=== PATIENT | female | born 1950 | race Caucasian/White ===

== ENCOUNTER 2019-07-28 07:56 | Inpatient (IN) ==
--- NOTE | 2019-06-24 14:59 | Anesthesiology Consultation ---
Date of Service June 24, 2019 Assessment & Plan (1) Encounter for pre-operative examination: Chart Review Chart Review: Pending: Refer to Additional Notes / Consult section (pending preop testing (labs, CXR)) and Patient seen in Pre Admission Testing Teaching & Discussion Pre-Anesthesia Teaching/Discussion Notes: Instructed NPO after midnight before surgery,except medications with 15 cc of water. Medication instructions provided according to the PAT guidelines. History Surgery Operation Date: 07/28/19 10:05 Proposed Procedures p Total Knee Arthroplasty - Jose Vilchis MD Height/Weight Height: 5 ft 5 in Weight: 64 kg Allergies Allergy/AdvReac Type Severity Reaction Status Date / Time No Known Allergies Allergy Verified 06/22/19 09:48 Medications Home Medications Medication Instructions Recorded Confirmed Last Taken aspirin [Aspirin Low Dose] 81 mg PO QAM 06/22/19 06/22/19 Unknown coQ10 (ubiquinol) 200 mg PO QAM 06/22/19 06/22/19 Unknown meloxicam 15 mg PO QAM 06/22/19 06/22/19 Unknown omega-3 fatty acids-fish oil [Fish 1 cap PO QAM 06/22/19 06/22/19 Unknown Oil Extra Strength] plant stanol paolo [Cholest Off] 450 mg PO QAM 06/22/19 06/22/19 Unknown red yeast rice 1,200 mg PO QAM 06/22/19 06/22/19 Unknown sumatriptan succinate 50 mg PO DAILY PRN 06/24/19 06/24/19 Unknown Past Medical History Medical History Hx of migraines Osteoarthritis Exercise / Class Metabolic Activity II 4-5 Yardwork/Stairs/Walk up hill Past Family History Family History Mother Family history of diabetes mellitus Mother Family hx of colon cancer Past Surgical History Surgical History Hx of colonoscopy Past Anesthesia History No Hx of Anesthesia Complications and No Family Hx of Anesthesia Complications History of PONV No Hx of PONV and No Hx of Motion Sickness Social History Smoking Status: Never smoker Do You Dip or Chew Tobacco: No Hx Alcohol Use: No Hx Substance Use: No Review of Systems Patient denies chest pain, shortness of breath, dyspnea on exertion, reflux, cough, wheezing, palpitations. Physical Exam Vital Signs VITALS BP 128/78 P 88 TEMP 98.2 SP02 97%RA RESP 18 PHYSICAL Full neck and c-spine range of motion. Full TMJ range of motion. TMD 3.5 finger breaths Mallampati Score 2 Dentition: intact Lungs: clear throughout to auscultation Cardiac: regular rate and rhythm, no murmurs noted Spine: normal Carotid arteries: negative bruit Extremities: no edema Testing Electrocardiogram Date: 06/23/19 Findings: + NSR @ (71)
--- NOTE | 2019-06-24 15:09 | PAT Medication Instructions ---
Medication Instructions Date of Service June 24, 2019 Home Medications Sumatriptan 100 mg PO DAILY PRN aspirin [Aspirin Low Dose] 81 mg PO QAM coQ10 (ubiquinol) 200 mg PO QAM meloxicam 15 mg PO QAM omega-3 fatty acids-fish oil [Fish Oil Extra Strength] 1 cap PO QAM plant stanol paolo [Cholest Off] 450 mg PO QAM red yeast rice 1,200 mg PO QAM ASK your surgeon for instructions meloxicam 15 mg PO QAM STOP taking 2 weeks before surgery (or as soon as possible if surgery is within 2 weeks) coQ10 (ubiquinol) 200 mg PO QAM omega-3 fatty acids-fish oil [Fish Oil Extra Strength] 1 cap PO QAM plant stanol paolo [Cholest Off] 450 mg PO QAM red yeast rice 1,200 mg PO QAM Take morning of surgery With a small sip of water, OTHERWISE NOTHING TO EAT OR DRINK AFTER MIDNIGHT: Sumatriptan 100 mg PO DAILY PRN (if needed) aspirin [Aspirin Low Dose] 81 mg PO QAM Other Notes If you have any questions please call us at [phone] or [phone] or [phone] or [phone]
--- NOTE | 2019-06-24 15:32 | XRay Report ---
XR chest Pre-admission PA/Lat CLINICAL HISTORY: Preoperative chest COMPARISON STUDY: No previous studies for comparison. FINDINGS: The cardiac and mediastinal contours are normal. There is no evidence of focal pulmonary co nsolidation. There is no evidence of failure. No pleural effusions are visualized.[There is a linear focus of scar/atelectatic change in the right medial lung base. IMPRESSION: No active disease in the chest. Electronically signed by: Raphael Carrillo M.D. 06/24/2019 3:30 PM
[2019-06-24 16:38] LABS: Basophils # (auto) 0.08 K/uL (0-0.2); Basophils % (auto) 1.7 %; Eosinophils # (auto) 0.29 K/uL (0-0.5); Eosinophils % (auto) 6.3 %; Hematocrit (blood only) 37.3 % (37-47); Hemoglobin 12.8 g/dL (12.0-16.0); Immature Granulocytes # (auto) 0.01 K/uL (0.00-0.02); Immature Granulocytes % (auto) 0.2 %; Lymphocytes # (auto) 1.85 K/uL (1.2-3.4); Mean Corpuscular Hemoglobin 31.2 pg (25-34); Mean Corpuscular Hgb Conc 34.3 g/dL (32-36); Mean Platelet Volume 10.6 fL (7.4-10.4); Monocytes # (auto) 0.28 K/uL (0.11-0.59); Monocytes % (auto) 6.1 %; Neutrophils # (auto) 2.11 K/uL (1.4-6.5); Neutrophils % (auto) 45.7 %; Platelet Count 236 K/uL (130-400); RDW Coefficient of Variation 12.9 % (11.5-14.5); RDW Standard Deviation 43.1 fL (36.4-46.3); White Blood Count 4.62 K/uL (4.8-10.8)
[2019-06-24 16:40] LABS: Appearance Urine Clear (Clear); Bilirubin Urine Negative (Negative); Blood Urine Negative (Negative); Color Urine Dark Yellow; Glucose Urine UA Negative (Negative); Ketones Urine 2+ (Negative); Leukocyte Esterase Urine Negative (Negative); Nitrite Urine Negative (Negative); Protein Urine Negative (Negative); Specific Gravity Urine 1.027 (1.000-1.030); Urobilinogen Urine Negative (Negative)
[2019-06-24 16:47] LABS: Partial Thromboplastin Ratio 0.9; Partial Thromboplastin Time 24.6 Seconds (21.0-31.0); Prothrombin Time 10.3 Seconds (9.0-12.0)
[2019-06-24 16:51] LABS: Albumin Level 3.7 gm/dl (3.4-5.0); BUN Creatinine Ratio 27.2 (10-20); Calcium 8.7 mg/dl (8.5-10.1); Creatinine Clr Calc Pharmacy 63.8 ml/min; Est GFR (African American) 91.8; Est GFR (Non-African American) 79.2; Potassium 3.6 mmol/L (3.5-5.1)
[2019-06-25 06:54] LABS: Estimated Average Glucose 120 mg/dl; Hemoglobin A1C 5.8 % (4.5-5.6)
--- NOTE | 2019-07-27 21:50 | History and Physical Report ---
DATE OF ADMISSION: 07/28/2019 CHIEF COMPLAINT: Chronic right knee pain and instability. HISTORY OF PRESENT ILLNESS: This is a 68-year-old female patient of Dr. Vilchis'pipe complaining of chronic right knee pain, longstanding, now progressively getting worse. The patient has failed conservative treatment including intra-articular injections, viscosupplementation, anti-inflammatories, home exercise program and the use of a wrap. The patient has increased pain with weightbearing activities and her pain does interfere with her activities of daily living. The patient has been diagnosed with end-stage osteoarthritis per clinical and radiographic exams. The patient wished to proceed with a right total knee arthroplasty. PAST MEDICAL HISTORY: Osteoarthritis, otherwise a healthy 68-year-old female. SOCIAL HISTORY: Nonsmoker, nondrinker. PAST SURGICAL HISTORY: Negative. FAMILY HISTORY: Noncontributory. REVIEW OF SYSTEMS: Chronic right knee pain and instability. Otherwise, denies any shortness of breath, chest pain, nausea, vomiting or any other joint complaints. MEDICATIONS: 1. Sumatriptan 100 mg as needed for migraine. 2. Fish oil daily. 3. CoQ10 10 mg daily. 4. Aspirin 81 mg daily. 5. Meloxicam 15 mg daily. ALLERGIES: No known drug allergies. PHYSICAL EXAMINATION: GENERAL: Well-developed, well-nourished 68-year-old female in no acute distress. She is alert and oriented x3 and pleasant. HEENT: Normocephalic, atraumatic. Extraocular motions are intact. Pupils are equal and reactive to light. HEART: Regular rate and rhythm, no murmurs. LUNGS: Clear. ABDOMEN: Soft, nontender, bowel sounds present. EXTREMITIES: Right knee range of motion is negative 5-100 degrees of range of motion. She has a positive effusion with a limp on ambulation. She has crepitation and pain with range of motion. She has 5/5 strength. NEUROLOGIC: Neurovascularly, she is intact in her right lower extremity. DIAGNOSES: Right knee end-stage osteoarthritis, otherwise a healthy 68-year-old female. PLAN: The patient was advised of her diagnosis. Indications, risks, benefits, postop course have all been reviewed. The patient wished to proceed with a right total knee arthroplasty. Necessary consent forms, preoperative testing and clearances will be obtained.
[~2019-07-28 07:56] MED LIST: ACETAMINOPHEN 500 MG TAB PO SCH; BUPIVACAINE 0.5 % 5 MG/1 ML PF 10ML VIAL ONE; CEFAZOLIN 1000MG 1,000 MG/7.5 ML SYR IV SCH; CeleBREX 200 MG CAP PO SCH; FAMOTIDINE 20 MG TAB PO SCH; GABAPENTIN 300 MG CAP PO SCH; LR 500ML BOLUS, THEN 15ML/HR IV SCH; METOCLOPRAMIDE HCL 10 MG TABLET PO SCH; ROPIVACAINE 0.5% 5 MG/ML 30 ML VIAL ONE; ROPIVACAINE 0.5% HCL/PF 150 MG, BUPIVACAINE 0.5% MPF 30 ML, EPINEPHrine 30MG/30ML (OR U... INSTIL SCH; TRANEXAMIC ACID 1,000 MG **IV Intra-op IV SCH; TRANEXAMIC ACID 1,000 MG **IV Pre-op IV SCH; dexAMETHasone 4 MG TAB PO SCH
[2019-07-28] MEDS ORDERED: MIDAZOLAM HCL 1 MG/ML 2ML VIAL ONE (07:59)
[2019-07-28] MEDS ORDERED: fentaNYL citrate 100 MCG/2 ML VIAL ONE (07:59)
[2019-07-28] MEDS ORDERED: ePHEDrine sulfate 50 MG/ML SYR ONE (08:11)
[2019-07-28] MEDS ORDERED: LIDOCAINE HCL 2% 2 ML VIAL/AMP(20MG/ML) INFIL ONE (08:11)
[2019-07-28] MEDS ORDERED: PROPOFOL IV EMULSION 10 MG/ML 20 ML VIAL IV ONE (08:11)
[2019-07-28] MEDS ORDERED: PHENYLEPHRINE 100MCG/ML 5ML SYR ONE (08:11)
--- NOTE | 2019-07-28 09:00 | History & Physical Bridge Note ---
Date of Service July 28, 2019 History & Physical Bridge Note I have examined the patient, reviewed the History & Physical and in the interval since the performance of the History & Physical I have noted the following changes of clinical significance: no changes noted
[2019-07-28] MEDS ORDERED: ORTHO JOINT ANESTHETIC ONE (09:31)
[2019-07-28] MEDS ORDERED: BACITRACIN INJ 50,000 UNIT VIAL ONE (09:32)
--- NOTE | 2019-07-28 12:12 | Post Operative Brief Note ---
Immediate Post Op Note v1 Date of Surgery July 28, 2019 Pre & Post Diagnosis Operation Date: 07/28/19 10:20 Pre-Op Diagnosis: Osteoarthritis, Right Knee Post-Op Diagnosis: Osteoarthritis, Right Knee I personally identified the patient: Yes Procedure Operation Date: 07/28/19 10:20 Actual Procedures p Right Total Knee Arthroplasty(Right) - Jose Vilchis MD Surgeon Jose Vilchis MD Product Safety Tester Bulmaro MCFADDEN Estimated Blood Loss 5 Findings Consistent with Post-Op Diagnosis Specimens Bone cuts Drains Hemovac Drain Anesthesia Type MAC Spinal Regional Complications none Disposition Accompanied Patient To Recovery: No Disposition: Recovery Room Overlapping Procedure I was present for: the critical portions of procedure. Back up surgeon: was not required during procedure.
--- NOTE | 2019-07-28 13:17 | XRay Report ---
XR knee RT 2V routine CLINICAL HISTORY: Surgical Post Op COMPARISON: 11/18/2018 DISCUSSION: There are postsurgical changes of a total right knee arthroplasty and patellar resurfacin g. The femoral tibial components appear well seated. No acute fractures are visualized. There is air within the soft tissues consistent with recent surgery. There are overlying skin fiordaliza and surgical drains. IMPRESSION: Postsurgical changes of a total right knee arthroplasty. Electronically signed by: Raphael Carrillo M.D. 07/28/2019 1:16 PM
[2019-07-28] MEDS ORDERED: SUMAtriptan succinate 50 MG TAB PO STA (13:18)
--- NOTE | 2019-07-28 13:18 | Anesthesiology Progress Note ---
Date of Service July 28, 2019 Anesthesia Post Procedure Vital Signs Vital Signs: Temp Pulse Pulse Resp BP Pulse Ox 07/28/19 13:10 36.6 C 84 15 124/67 95 07/28/19 13:00 86 13 120/67 96 07/28/19 12:50 84 17 116/65 97 07/28/19 12:41 36.5 C 82 16 114/56 L 99 07/28/19 08:36 36.5 C 80 20 152/80 H 100 Pain Intensity Right Knee: Pain Intensity: 0 Transfer of Care Handoff Completed per policy Notes Mental Status: alert / awake / arousable and participated in evaluation Patient Amnestic to Procedure: Yes Nausea / Vomiting: adequately controlled Pain: adequately controlled Airway Patency, RR, SpO2: stable & adequate BP & HR: stable & adequate Hydration State: stable & adequate Neuraxial Anesthesia: was administered and sensory block is resolving Anesthetic Complications: no major complications apparent
[2019-07-28] MEDS ORDERED: bisacodyL 10 MG SUPP PR PRN (14:19)
[2019-07-28] MEDS ORDERED: SODIUM CHLORIDE 0.9% 1000ML 1,000 ML IV SCH (14:19)
[2019-07-28] MEDS ORDERED: MAGNESIUM HYDROXIDE SUSP 30 ML UDC PO PRN (14:19)
[2019-07-28] MEDS ORDERED: NALOXONE HCL 0.4 MG/1 ML VIAL/CARP IV PRN (14:19)
[2019-07-28] MEDS ORDERED: HYDROmorphone INJ 0.5 MG/0.5 ML SYR IV PRN (14:19)
[2019-07-28] MEDS ORDERED: ONDANSETRON INJ 2 MG/ML 2 ML VIAL IV PRN (14:19)
[2019-07-28] MEDS ORDERED: SUMAtriptan succinate 100 MG TAB PO PRN (14:19)
[2019-07-28] MEDS ORDERED: SUMAtriptan succinate 50 MG TAB PO PRN (14:23)
[2019-07-28] MEDS: ACETAMINOPHEN 500 MG TAB PO SCH ×2 (15:10→21:40)
--- NOTE | 2019-07-28 15:28 | Consultation ---
Date of Consultation July 28, 2019 Assessment & Plan (1) Osteoarthritis: (2) Status post total knee replacement, right: S/P R TKA POD # [address] Vilchis tolerated procedure well ebl 5ml pain/wound management per ortho activity and therapy as directed by ortho incentive spirometry monitor H/H (3) Pre-diabetes: A1C 5.7 monitor fasting blood glucose she did receive decadron pre operatively (4) HLD (hyperlipidemia): on Red yeast rice, CoQ10, fish oil, plant stanol paolo Total Chol 218, LDL 120 (5) Migraine: imitrex prn had migraine today requiring imitrex x 1 with resolution of headache (6) DVT prophylaxis: SCD/TEDS ASA bid per ortho Disposition: per primary Follow up: PCP Erendira Biswas PA-C upon discharge Patient was seen and examined in collaboration with Dr. Riley, please see addendum Thank you for this consultation. We will follow the patient with you during their hospital stay. You can reach a [facility] via pager @ [phone]. Supervising Physician Co-Signing Physician Notes Attending Addendum: care coordinated with LESA Baugh please refer to her notes for full details, I agree with her notes patient seen and examined, records reviewed by myself as well on exam, patient seen comfortable, resting in bed denies right knee pain no other symptoms VS noted and reviewed oriented x 3, not in distress, speaks in sentences with no effort nor accessory muscle use normal rate, regular rhythm, no murmurs clear breath sounds bilaterally non distended, soft, nontender right knee: heaving dressing in place, drain in place with sanguinous output no bipedal edema, erythema, warmth no neuro deficits ASSESSMENT AND PLAN s/p R TKA stable overall monitor H&H Pre Diabetes will monitor BSGs other diagnoses and plan of care as per LESA Baugh's notes Guido Riley MD History of Present Illness Requesting Physician: Dr. Vilchis Reason for Consultation: Postop medical management Attending Physician: Jose Vilchis MD History of Present Illness This is a 68-year-old female who has a significant PMH of pre-diabetes mellitus, HLD, migraine, right knee OA DJD who presents to [facility] for elective right TKA due to end-stage OA DJD. Surgery performed by Dr. Vilchis and patient tolerated well. Multiple family members at bedside. Currently complains of a dull ache to right knee and requesting analgesia. Has numbness to right foot and beginning to regain feeling. Tolerated oral intake at lunch. Denies any postoperative fever, chills, sweats, lightheadedness, dizziness, chest pain, shortness breath, cough, nausea, vomiting, abdominal pain, dysuria, increased urgency or frequency with urination. She did have a postoperative migraine and used Imitrex with resolution of headache. She offers no acute concerns or complaints at this time. Allergies Allergy/AdvReac Type Severity Reaction Status Date / Time No Known Allergies Allergy Verified 07/28/19 08:44 Home Medications Home Medications Medication Instructions Recorded Confirmed Type aspirin [Aspirin Low Dose] 81 mg PO QAM 06/22/19 07/28/19 History coQ10 (ubiquinol) 200 mg PO QAM 06/22/19 07/28/19 History meloxicam 15 mg PO QAM 06/22/19 07/28/19 History omega-3 fatty acids-fish oil [Fish 1 cap PO QAM 06/22/19 07/28/19 History Oil Extra Strength] plant stanol paolo [Cholest Off] 450 mg PO QAM 06/22/19 07/28/19 History red yeast rice 1,200 mg PO QAM 06/22/19 07/28/19 History sumatriptan succinate 50 mg PO DAILY PRN 06/24/19 07/28/19 History Patient History Medical History Migraine HLD (hyperlipidemia) Pre-diabetes Osteoarthritis Surgical History Hx of colonoscopy Family History Mother , age 94 TIA (transient ischemic attack) Colorectal cancer Diabetes Father , 89 Stroke Heart disease Social History Preferred Language: Cambodian Communication Ability: Effective Beliefs That Will Affect Care: None Current Living Situation: Spouse Feels Safe at Home: Yes Safety Concerns: Feels Safe At This Time Smoking Status: Never smoker Do You Dip or Chew Tobacco: No ; Second Hand Exposure: No ; Hx Alcohol Use: No Hx Substance Use: No Review of Systems Review of Systems: All systems reviewed & are unremarkable except as noted in HPI & below Physical Exam Physical Exam: Constitutional: WD/WN, vitals as above, NAD, sitting up in bed, pleasant, conversing easily Head: Normocephalic, Atraumatic Eyes: PERRL, conjunctivae normal, anicteric sclerae ENMT: external ear and nose normal, oropharynx normal Neck: trachea midline, no thyromegaly normal visual inspection Respiratory: normal respiratory effort, lungs clear to auscultation, no wheeze, rales, rhonchi. Normal insp/exp effort, no accessory muscle use Cardiovascular: RRR, no murmur, no edema Vessels: no JVD or carotid bruit Chest: normal inspection of chest Abdomen: normal bowel sounds, soft, nontender, no hepatosplenomegaly Musculoskeletal: no cyanosis or clubbing, extremities motor strength 5/5 except RLE not tested due to post op state - R TKA dressing CDI, NVI distally, b/l scd/teds in place Skin: no rashes, warm and dry normal turgor Neurologic: PERRL, EOMI, accommodation nl, no face palsy, no dysarthria CN's II-XI intact bilaterally and moves all extremities Psychiatric: A+Ox3, euthymic affect Lymphatic: no cervical or axillary lymphadenopathy : deferred Results & Data Vital Signs (Past 12 Hours) Vital Signs Temp Pulse Pulse Resp BP Pulse Ox 07/28/19 15:06 36.4 C L 87 18 132/82 99 07/28/19 14:24 78 18 128/75 97 07/28/19 13:50 36.4 C L 84 16 123/71 97 07/28/19 13:20 82 13 118/62 97 07/28/19 13:10 36.6 C 84 15 124/67 95 07/28/19 13:00 86 13 120/67 96 07/28/19 12:50 84 17 116/65 97 07/28/19 12:41 36.5 C 82 16 114/56 L 99 07/28/19 08:36 36.5 C 80 20 152/80 H 100 Laboratory Results Pre operative lab work 06/24/19 wbc 4.62, H/H 12.8/37.3, PLT 236 Pt/INR 10.3/1.0 Na 143, K 3.6, Chl 108, Co2 29, BUN 21, Cr 0.78, glucose 138 A!C 5.8 Diagnostic Findings CXR: FINDINGS: The cardiac and mediastinal contours are normal. There is no evidence of focal pulmonary consolidation. There is no evidence of failure. No pleural effusions are visualized.[There is a linear focus of scar/atelectatic change in the right medial lung base. IMPRESSION: No active disease in the chest. Medications Administered Acetaminophen (Tylenol) 1,000 mg PO Q8 JASMYN Stop: 08/27/19 14:59 Last Admin: 07/28/19 15:10 Dose: 1,000 mg Documented by: [id number] Discontinued Medications Acetaminophen (Tylenol) 1,000 mg PO PREOP JASMYN Stop: 07/28/19 18:00 Last Admin: 07/28/19 09:09 Dose: 1,000 mg Documented by: [id number] Bacitracin (Bacitracin) Confirm Administered Dose 50,000 units .ROUTE .[facility] ONE Stop: 07/28/19 09:33 Last Admin: 07/28/19 11:37 Dose: 50,000 units Documented by: [id number] Celecoxib (Celebrex) 200 mg PO PREOP JASMYN Stop: 07/28/19 18:00 Last Admin: 07/28/19 09:09 Dose: 200 mg Documented by: [id number] Dexamethasone (Decadron) 8 mg PO PREOP JASMYN Stop: 07/28/19 18:00 Last Admin: 07/28/19 09:09 Dose: 8 mg Documented by: [id number] Famotidine (Pepcid) 20 mg PO PREOP JASMYN Stop: 07/28/19 18:00 Last Admin: 07/28/19 09:09 Dose: 20 mg Documented by: [id number] Gabapentin (Neurontin) 300 mg PO PREOP JASMYN Stop: 07/28/19 18:00 Last Admin: 07/28/19 09:08 Dose: 300 mg Documented by: [id number] Lactated Ringer's (Lr) 1,000 mls @ 15 mls/hr IV .Q24H JASMYN Stop: 07/28/19 18:00 Last Infusion: 07/28/19 10:30 Dose: 0 mls/hr Documented by: [id number] Admin: 07/28/19 09:05 Dose: 15 mls/hr Documented by: [id number] Cefazolin Sodium (Ancef 1000mg) 1,000 mg in 7.5 mls @ 2.5 mls/min IV PREOP JASMYN; Protocol Stop: 07/28/19 18:00 Last Admin: 07/28/19 10:30 Dose: 2.5 mls/min Documented by: [id number] Ropivacaine 150 mg/Bupivacaine HCl 30 ml/Epinephrine HCl 0.15 mg/Ketorolac Tromethamine 30 mg/Dexamethasone 4 mg/ Ketamine HCl 10 mg/ Clonidine HCl 100 mcg/ Sodium Chloride 93.35 mls @ 0 mls/hr INSTIL PREOP JASMYN Stop: 07/28/19 06:01 Last Admin: 07/28/19 12:14 Dose: 93.35 mls/hr Documented by: [id number] Tranexamic Acid 1,000 mg/ (Sodium Chloride) 110 mls @ 660 mls/hr IV TODAY@0600 [facility] Stop: 07/28/19 06:09 Last Infusion: 07/28/19 10:20 Dose: 0 mls/hr Documented by: [id number] Admin: 07/28/19 10:10 Dose: 660 mls/hr Documented by: [id number] Tranexamic Acid 1,000 mg/ (Sodium Chloride) 110 mls @ 660 mls/hr IV 0630 JASMYN Stop: 07/28/19 06:39 Last Infusion: 07/28/19 14:47 Dose: 0 mls/hr Documented by: [id number] Admin: 07/28/19 12:00 Dose: 660 mls/hr Documented by: [id number] Metoclopramide HCl (Reglan) 10 mg PO PREOP JASMYN Stop: 07/28/19 18:00 Last Admin: 07/28/19 09:08 Dose: 10 mg Documented by: [id number] Miscellaneous (Ortho Joint Anesthetic) Confirm Administered Dose 1 ea .ROUTE .[facility] ONE Stop: 07/28/19 09:32 Last Admin: 07/28/19 14:47 Dose: Not Given Documented by: [id number] Sumatriptan Succinate (Imitrex) 50 mg PO NOW STA Stop: 07/28/19 13:19 Last Admin: 07/28/19 13:26 Dose: 50 mg Documented by: [id number] ECG Rate (beats per minute): 71 Rhythm: normal sinus
--- NOTE | 2019-07-28 18:08 | Operative Report ---
Post Operative Report Pre & Post Diagnosis Operation Date: 07/28/19 10:20 Pre-Op Diagnosis: Osteoarthritis, Right Knee Post-Op Diagnosis: Osteoarthritis, Right Knee I personally identified the patient: Yes Procedure Operation Date: 07/28/19 10:20 Actual Procedures p Right Total Knee Arthroplasty(Right) - Jose Vilchis MD Surgeon Jose Vilchis MD Purchasing Engineer Bulmaro MCFADDEN Estimated Blood Loss 5 Findings Consistent with Post-Op Diagnosis Specimens Bone cuts Drains 2 Hemovac Anesthesia Type MAC Spinal Regional Complications none Disposition Accompanied Patient To Recovery: No Disposition: Recovery Room Indications 68-year-old active female with bilateral advanced osteoarthritis of the knees more painful in the right knee. Patient has varus knees medial compartment and patellofemoral OA with significant joint space narrowing. Description of Procedure Patient taken to the operating room placed supine on the operating table and anesthetized under spinal MAC regional anesthesia. Exam under anesthesia demonstrated good range of motion patellofemoral crepitation no instability. A pneumatic tourniquet was placed about the thigh of the right lower extremity. The right lower extremity was prepped and draped in usual fashion. Leg was elevated exsanguinated with an Esmarch bandage and the pneumatic was raised to 325 mm mercury. An anterior incision was made across the right knee. The skin was incised longitudinally subcutaneous flaps were elevated and an incision was made through the medial retinaculum extending up into the mid third of the quadriceps tendon and extended down to the medial tibial tubercle. Intra- articular findings demonstrated medial compartment and patellofemoral arthritis advanced [id number] in the lateral patellofemoral joint [id number] medial compartment with significant osteophytes medial compartment and patellofemoral joint. The knee was exposed by excising the infrapatellar fat pad, excising the meniscal remnants and cruciate ligaments or remnants of the ligaments. Any inflamed synovial tissue was resected. The fat pad over the anterior femur was resected for placement of the component in that area. The lateral synovial bands were release. Appropriate releases were performed to balance ligaments. The femur was exposed. The custom femoral cutting block was pinned in position. The distal femoral cutting block was applied. The distal femoral cut was made with the oscillating saw. The size 8 4-in-1 cutting block was placed. The a nterior and posterior chamfer cuts were made. The knee was extended and a subperiosteal peel lateral release was performed around the patella. The patella width was measured and width was reproduced using freehand cut technique. The 35 x 9 millimeter symmetrical patella was used. 3 drill holes are made for the pegs. The tibia was exposed. A custom tibial cutting block was positioned and drill holes were made for the cutting guide. Cutting guide was placed and the proximal cut was made with the oscillating saw. All osteophytes were resected. The lamina rotary peel oven tender was used to assess ligamentous balance and the ligaments were balanced in extension and flexion. The tibia was reexposed and measured for a size D tibial component. This was externally rotated in line with the tibial tubercle and the fixation pins were drilled. The proximal tibia was fashioned with the drill and punch. The size 8 femoral trial was inserted. The trial MC inserts were used. The 10 mm insert gave bal anced ligaments through full range of motion. The patella tracked centrally. the trials were removed. The orthomix anesthetic cocktail was injected per protocol. The knee was then copiously irrigated with pulsatile lavage antibiotic solution with bacitracin. The final components were cemented with Simplex cement. The final components were [employer] persona size 8 CR narrow femur, D tibia, 10 mm MC polyethylene, 35 x 9 mm symmetrical patella. While the cement cured with the knee in full extension the Betadine soak was used per protocol. After the cement cured, the knee joint was copiously irrigated with antibiotic solution with bacitracin. 2 drains were brought out laterally and connected to a Hemovac. The quadriceps tendon and medial retinaculum were closed with interrupted [id number] #1 Vicryl sutures. The knee was taken through a full range of motion and repair was secure. The subcutaneous tissues were closed with 2-0 Vicryl sutures and skin was closed with fiordaliza. Sterile dressings were applied and the patient tolerated the procedure well. Bulmaro MCFADDEN my physician delivery driver assistant, assisted in soft tissue retraction instrument management leg positioning the closure and will participate in the postoperative care of the patient. I attest to the content of the Intraoperative Record and any orders documented therein. Any exceptions are noted below.
[2019-07-28] MEDS: CEFAZOLIN 1000MG 1,000 MG/7.5 ML SYR IV SCH (18:17)
[2019-07-28] MEDS: OXYCODONE HCL IR 5 MG TAB (IMMEDIATE RELEASE) PO PRN (19:39)
[2019-07-28] MEDS: DOCUSATE SODIUM 100 MG CAP PO SCH (20:31)
[2019-07-28] MEDS: CeleBREX 200 MG CAP PO SCH (20:32)
[2019-07-28] MEDS: SENNA 8.6 MG TAB PO SCH (20:32)
[2019-07-28] MEDS: ASPIRIN 81 MG ECTAB PO SCH (20:32)
[2019-07-29] MEDS: CEFAZOLIN 1000MG 1,000 MG/7.5 ML SYR IV SCH (01:34)
[2019-07-29] MEDS: OXYCODONE HCL IR 5 MG TAB (IMMEDIATE RELEASE) PO PRN ×4 (05:02→18:29)
[2019-07-29] MEDS: ACETAMINOPHEN 500 MG TAB PO SCH ×3 (05:02→21:16)
[2019-07-29 05:47] LABS: Hematocrit (blood only) 30.7 % (37-47); Hemoglobin 10.3 g/dL (12.0-16.0); Mean Corpuscular Hemoglobin 30.7 pg (25-34); Mean Corpuscular Hgb Conc 33.6 g/dL (32-36); Mean Corpuscular Volume 91.6 fL (80-100); Mean Platelet Volume 9.8 fL (7.4-10.4); Platelet Count 185 K/uL (130-400); RDW Coefficient of Variation 13.2 % (11.5-14.5); RDW Standard Deviation 44.5 fL (36.4-46.3); Red Blood Count 3.35 M/uL (4.2-5.4); White Blood Count 10.42 K/uL (4.8-10.8)
[2019-07-29 06:33] LABS: BUN Creatinine Ratio 24.3 (10-20); Calcium 8.4 mg/dl (8.5-10.1); Creatinine Clr Calc Pharmacy 63.7 ml/min; Est GFR (African American) 96.3; Est GFR (Non-African American) 83.1; Potassium 4.1 mmol/L (3.5-5.1)
--- NOTE | 2019-07-29 07:55 | Orthopedic Progress Note ---
Date of Service July 29, 2019 Assessment & Plan (1) Status post total knee replacement, right: POD #1 Right TKA PT/ OT DVT proph- ASA D/C planning- Home w OPPT Sat. As per medicine. Likely orthostatic hypotension, will monitor. Subjective POD #1, Doing well. Denies SOB, CP, N/V. Pain controlled well. Wishes OPPT on D/C. After rounding patient did get dizzy in bathroom, BP 87/53. Incident was short lived, patient states "i feel completely fine now" once back in bed. Physical Exam Physical Exam: Right knee dressings c/d/i, no drainage. Drain in tact. Toes/ ankle mobile. No calf tenderness. N/V+ A&Ox3. Results & Data Vital Signs (Past 12 Hours) Vital Signs Temp Pulse Resp BP Pulse Ox 07/29/19 04:39 36.9 C 87 14 100/62 98 07/28/19 23:22 36.6 C 66 15 104/66 98
[2019-07-29] MEDS: ASPIRIN 81 MG ECTAB PO SCH ×2 (08:50→21:16)
[2019-07-29] MEDS: DOCUSATE SODIUM 100 MG CAP PO SCH ×2 (08:50→21:15)
[2019-07-29] MEDS: MULTIVITAMIN TAB PO SCH (08:50)
[2019-07-29] MEDS: CeleBREX 200 MG CAP PO SCH ×2 (08:50→21:16)
--- NOTE | 2019-07-29 09:05 | Hospitalist Progress Note ---
Date of Service July 29, 2019 Assessment & Plan (1) Osteoarthritis: (2) Status post total knee replacement, right: - POD#[address] Vilchis - activity and wound care orders as per ortho - pain control with bowel regimen - PT/OT - monitor H/H for acute blood loss anemia and transfuse blood products PRN - EBL 5 cc, drain output 625 cc to date - Preop Hgb 12.8 ->10.3 today (3) Hypotension: -Had episode of hypotension while up to the bathroom earlier this morning -Patient had pain medication on empty stomach -Symptoms resolved once patient returned back to bed -Hgb stable at 10.3 -Monitor orthostatic BPs, if symptoms persist will start IVF (4) Pre-diabetes: -HgbA1c A1C 5.7 -Fasting glucose 102 (5) HLD (hyperlipidemia): -on Red yeast rice, CoQ10, fish oil, plant stanol paolo (6) Migraine: -imitrex prn (7) DVT prophylaxis: -SCD/TEDS, ASA bid per ortho Supervising Physician Co-Signing Physician Notes Attending Addendum: care coordinated with YSABEL York please refer to her notes for full details, I agree with her notes patient seen and examined, records reviewed by myself as well on exam, patient seen with at bedside states she has more R knee pain, relieved by PRN Oxycodone no recurrence of lightheadedness this afternoon denies chest pain, dizziness, palpitations no other symptoms VS noted and reviewed oriented x 3, not in distress, speaks in sentences with no effort nor accessory muscle use normal rate, regular rhythm, no murmurs clear BS, no rales/wheezes BL non distended, soft, nontender right knee: heaving dressing in place, drain in place with sanguinous output no bipedal edema, erythema, warmth no neuro deficits ASSESSMENT AND PLAN s/p R TKA episode of lightheadedness, low BP today BP improving encouraged to increase oral fluid intake was going to recommend tramadol but (+) interaction with Imitrex monitor closely Pre Diabetes monitor BSGs other diagnoses and plan of care as per LESA Baugh's notes Guido Riley MD Subjective Patient seen and examined. Resting in bed, no acute distress. While up to the bathroom early this morning, patient had an episode of lightheadedness with associated hypotension. Symptoms resolved when patient returned to bed. She reports taking pain medication on empty stomach this morning. Pain well controlled. No chest pain or shortness of breath. Denies abdominal pain and nausea. Passing flatus, no bowel movement. Urinating without difficulty. Physical Exam Constitutional: no acute distress Resting in bed Respiratory: normal respiratory effort, lungs clear to auscultation Cardiovascular: Rate/Rhythm: regular rate and regular rhythm Vessels: normal peripheral pulses Extremities: no edema Gastrointestinal (Abdomen): Inspection/Auscultation: normal bowel sounds Percussion/Palpation: abdomen soft; abdomen nontender Musculoskeletal: S/P knee surgery, dressing dry and intact, ROBERTA in place draining bloody drainage, CSM checks intact Psychiatric: Orientation: alert and oriented x 3 Results & Data Vital Signs (Past 12 Hours) Vital Signs Temp Pulse Resp BP Pulse Ox 07/29/19 07:55 58 L 14 87/53 L 98 07/29/19 07:10 36.5 C 70 16 121/73 94 07/29/19 04:39 36.9 C 87 14 100/62 98 07/28/19 23:22 36.6 C 66 15 104/66 98 Laboratory Results Short CBC 07/29/19 Range/Units 05:30 WBC 10.42 (4.8-10.8) K/uL Hgb 10.3 L (12.0-16.0) g/dL Hct 30.7 L (37-47) % Plt Count 185 (130-400) K/uL BMP 07/29/19 05:30 Sodium 141 Potassium 4.1 Chloride 109 H Carbon Dioxide 28 BUN 18 Creatinine 0.75 Glucose 102 H Calcium 8.4 L
--- NOTE | 2019-07-29 09:42 | Anesthesiology Progress Note ---
Date of Service July 29, 2019 Anesthesia Post Procedure Vital Signs Vital Signs: Temp Pulse Pulse Resp BP BP Pulse Ox 07/29/19 07:55 58 L 14 87/53 L 98 07/29/19 07:10 36.5 C 70 16 121/73 94 07/29/19 04:39 36.9 C 87 14 100/62 98 07/28/19 23:22 36.6 C 66 15 104/66 98 07/28/19 19:30 36.7 C 95 H 16 116/72 96 07/28/19 16:59 36.5 C 75 16 125/73 97 07/28/19 15:58 36.3 C L 90 16 111/71 96 07/28/19 15:06 36.4 C L 87 18 132/82 99 07/28/19 14:24 78 18 128/75 97 07/28/19 13:50 36.4 C L 84 16 123/71 97 07/28/19 13:20 82 13 118/62 97 07/28/19 13:10 36.6 C 84 15 124/67 95 07/28/19 13:00 86 13 120/67 96 07/28/19 12:50 84 17 116/65 97 07/28/19 12:41 36.5 C 82 16 114/56 L 99 Pain Intensity Right Knee: Pain Intensity: 2 Head: Pain Intensity: 5 Notes Mental Status: alert / awake / arousable and participated in evaluation Nausea / Vomiting: adequately controlled Pain: adequately controlled Airway Patency, RR, SpO2: stable & adequate BP & HR: stable & adequate Hydration State: stable & adequate Neuraxial Anesthesia: was administered and sensory block resolved Anesthetic Complications: no major complications apparent and Pt Satisfied with anesthetic care
[2019-07-29] MEDS ORDERED: TRAMADOL HCL 50 MG TABLET PO PRN (16:20)
[2019-07-29] MEDS: SENNA 8.6 MG TAB PO SCH (21:15)
[2019-07-29] MEDS ORDERED: KETOROLAC TROMETHAMINE 15 MG/ML VIAL IV PRN (21:31)
[2019-07-30] MEDS: OXYCODONE HCL IR 5 MG TAB (IMMEDIATE RELEASE) PO PRN ×3 (00:02→09:54)
[2019-07-30] MEDS: ACETAMINOPHEN 500 MG TAB PO SCH (05:53)
[2019-07-30 06:05] LABS: Hematocrit (blood only) 27.7 % (37-47); Hemoglobin 9.4 g/dL (12.0-16.0); Mean Corpuscular Hemoglobin 31.2 pg (25-34); Mean Corpuscular Hgb Conc 33.9 g/dL (32-36); Mean Platelet Volume 10.2 fL (7.4-10.4); Platelet Count 176 K/uL (130-400); RDW Coefficient of Variation 13.5 % (11.5-14.5); Red Blood Count 3.01 M/uL (4.2-5.4); White Blood Count 6.64 K/uL (4.8-10.8)
--- NOTE | 2019-07-30 06:41 | Orthopedic Progress Note ---
Date of Service July 30, 2019 Assessment & Plan (1) Status post total knee replacement, right: POD #2 Right TKA PT/ OT DVT proph- ASA D/C planning- Home w OPPT Sat. As per medicine. Subjective POD #2 Resting in bed, no acute distress. Pain well controlled. No chest pain or shortness of breath. Denies abdominal pain and nausea. Passing flatus, no bowel movement. Urinating without difficulty. Review of Systems Constitutional: no fever and no chills Physical Exam Physical Exam: Vital Signs Temp Pulse Resp BP BP Pulse Ox Pulse Ox 07/29/19 23:05 36.7 C 74 16 116/61 94 07/29/19 20:40 37.4 C 80 16 106/64 99 07/29/19 15:46 36.7 C 69 16 98/61 L 98 07/29/19 13:10 15 99 07/29/19 10:25 100 07/29/19 07:55 58 L 14 87/53 L 98 07/29/19 07:10 36.5 C 70 16 121/73 94 Intake and Output 07/29/19 07/29/19 07/30/19 14:59 22:59 06:59 Intake Total 600 / 1350 750 / 1350 Output Total 185 / 310 125 / 310 Balance 415 / 1040 625 / 1040 Intake: Oral 600 / 1350 750 / 1350 Output: Drain Output 185 / 310 125 / 310 Right Knee 185 / 310 125 / 310 Other: # Unmeasured Voi ds 1 Weight 62.397 kg Patient Weight 07/30/19 06:59 Weight 62.397 kg Constitutional: WD/WN, vitals as above no acute distress Musculoskeletal: Right knee: NVDI, calf SNT, negative jeff sign. DP palpable, able to wiggle toes/ankle movement without difficulty. Silverlon dressing clean dry and intact. expected post-operative bruising noted. Results & Data Vital Signs (Past 12 Hours) Vital Signs Temp Pulse Resp BP Pulse Ox 07/29/19 23:05 36.7 C 74 16 116/61 94 07/29/19 20:40 37.4 C 80 16 106/64 99 Laboratory Results Laboratory Results WBC 6.64 K/uL (4.8-10.8) 07/30/19 05:27 RBC 3.01 M/uL (4.2-5.4) L 07/30/19 05:27 Hgb 9.4 g/dL (12.0-16.0) L 07/30/19 05:27 Hct 27.7 % (37-47) L 07/30/19 05:27 MCV 92.0 fL (80-100) 07/30/19 05:27 MCH 31.2 pg (25-34) 07/30/19 05:27 MCHC 33.9 g/dL (32-36) 07/30/19 05:27 RDW Std Deviation 45.0 fL (36.4-46.3) 07/30/19 05:27 RDW Coeff of Omaira 13.5 % (11.5-14.5) 07/30/19 05:27 Plt Count 176 K/uL (130-400) 07/30/19 05:27 MPV 10.2 fL (7.4-10.4) 07/30/19 05:27 Immature Gran % (Auto) 0.2 % 06/24/19 15:12 Neut % (Auto) 45.7 % 06/24/19 15:12 Lymph % (Auto) 40.0 % 06/24/19 15:12 Stanly % (Auto) 6.1 % 06/24/19 15:12 Eos % (Auto) 6.3 % 06/24/19 15:12 Baso % (Auto) 1.7 % 06/24/19 15:12 Immature Gran # (Auto) 0.01 K/uL (0.00-0.02) 06/24/19 15:12 Neut # (Auto) 2.11 K/uL (1.4-6.5) 06/24/19 15:12 Lymph # (Auto) 1.85 K/uL (1.2-3.4) 06/24/19 15:12 Stanly # (Auto) 0.28 K/uL (0.11-0.59) 06/24/19 15:12 Eos # (Auto) 0.29 K/uL (0-0.5) 06/24/19 15:12 Baso # (Auto) 0.08 K/uL (0-0.2) 06/24/19 15:12 PT 10.3 Seconds (9.0-12.0) 06/24/19 15:12 INR 1.0 (0.9-1.1) 06/24/19 15:12 APTT 24.6 Seconds (21.0-31.0) 06/24/19 15:12 PTT Ratio 0.9 06/24/19 15:12 Sodium 141 mmol/L (136-145) 07/29/19 05:30 Potassium 4.1 mmol/L (3.5-5.1) 07/29/19 05:30 Chloride 109 mmol/L (98-107) H 07/29/19 05:30 Carbon Dioxide 28 mmol/L (21-32) 07/29/19 05:30 Anion Gap 4.0 (3-11) 07/29/19 05:30 BUN 18 mg/dl (7-18) 07/29/19 05:30 Creatinine 0.75 mg/dl (0.6-1.2) 07/29/19 05:30 Est Cr Clr Drug Dosing 63.7 ml/min 07/29/19 05:30 Est GFR ( Amer) 96.3 07/29/19 05:30 Est GFR (Non-Af Amer) 83.1 07/29/19 05:30 BUN/Creatinine Ratio 24.3 (10-20) H 07/29/19 05:30 Glucose 102 mg/dl (70-99) H 07/29/19 05:30 Estimat Average Glucose 120 mg/dl 06/24/19 15:12 Hemoglobin A1c 5.8 % (4.5-5.6) H 06/24/19 15:12 Calcium 8.4 mg/dl (8.5-10.1) L 07/29/19 05:30 Albumin 3.7 gm/dl (3.4-5.0) 06/24/19 15:12 Urine Color Dark Yellow 06/24/19 15:12 Urine Appearance Clear (Clear) 06/24/19 15:12 Urine pH 5.0 (4.5-7.5) 06/24/19 15:12 Ur Specific Sharon 1.027 (1.000-1.030) 06/24/19 15:12 Urine Protein Negative (Negative) 06/24/19 15:12 Urine Glucose (UA) Negative (Negative) 06/24/19 15:12 Urine Ketones 2+ (Negative) H 06/24/19 15:12 Urine Blood Negative (Negative) 06/24/19 15:12 Urine Nitrite Negative (Negative) 06/24/19 15:12 Urine Bilirubin Negative (Negative) 06/24/19 15:12 Urine Urobilinogen Negative (Negative) 06/24/19 15:12 Ur Leukocyte Esterase Negative (Negative) 06/24/19 15:12 Hepatitis C Ab Screen Neg (Neg) 07/29/19 05:30 Blood Type A Positive 06/24/19 15:12 Antibody Screen NEGATIVE 06/24/19 15:12
[2019-07-30 06:45] LABS: BUN Creatinine Ratio 26.4 (10-20); Calcium 8.1 mg/dl (8.5-10.1); Creatinine Clr Calc Pharmacy 55.6 ml/min; Est GFR (African American) 81.6; Est GFR (Non-African American) 70.4; Potassium 4.3 mmol/L (3.5-5.1)
[2019-07-30] MEDS: ASPIRIN 81 MG ECTAB PO SCH (09:06)
[2019-07-30] MEDS: CeleBREX 200 MG CAP PO SCH (09:06)
[2019-07-30] MEDS: DOCUSATE SODIUM 100 MG CAP PO SCH (09:07)
[2019-07-30] MEDS: MULTIVITAMIN TAB PO SCH (09:07)
--- NOTE | 2019-08-08 16:48 | Discharge Summary ---
HISTORY OF PRESENT ILLNESS: This is a 68-year-old female patient of Dr. Vilchis'pipe complaining of chronic right knee pain, longstanding, now progressively getting worse. The patient failed conservative treatment and was diagnosed with end-stage osteoarthritis per clinical and radiographic exams. The patient elected to proceed with a right total knee arthroplasty. PAST MEDICAL HISTORY: Osteoarthritis. Otherwise, a healthy 68-year-old female. POSTOPERATIVE COURSE: The patient underwent a right total knee arthroplasty on 07/28/2019. She was followed closely with DVT prophylaxis in the form of aspirin, physical therapy, pain control and medical consultation. On postoperative day #1, the patient did have one episode of orthostatic hypotension. She stated she took some pain medications without any food. It was short-lived and it was an isolated incident. Vital signs were all stable. Hemoglobin and hematocrit were normal for postoperative total knee replacement. This was an isolated incident. Otherwise, an uneventful postoperative course and she remained stable throughout discharge. PHYSICAL EXAMINATION: On discharge, Silverlon dressing was clean, dry and intact. There was no redness or drainage, no calf tenderness. Negative Homans sign. Neurologically and neurovascularly she was intact in her right lower extremity. Toes and ankle were mobile. PLAN: The patient was discharged home with outpatient physical therapy. She will continue her preadmission medications with the addition of aspirin for DVT prophylaxis and pain medications. She will follow up as an outpatient as scheduled.
== END 2019-07-30 11:49 | disposition home or self-care (01) | DRG 470 ==
LOC: ASU 07:56 → 3E 12:44
DX: M17.11 Unilateral primary osteoarthritis, right knee; I95.1 Orthostatic hypotension; Z79.899 Other long term (current) drug therapy; G43.909 Migraine, unspecified, not intractable, without status migrainosus; E78.5 Hyperlipidemia, unspecified; Z79.82 Long term (current) use of aspirin; R73.03 Prediabetes

== ENCOUNTER 2022-08-28 05:13 | Observation (INO) ==
--- NOTE | 2022-08-05 16:13 | PAT Medication Instructions ---
Medication Instructions Date of Service August 05, 2022 Home Medications sumatriptan succinate 100 mg tablet 50 mg PO DAILY PRN aspirin 81 mg capsule 81 mg PO QAM celecoxib 200 mg capsule (Celebrex) 200 mg PO QAM coenzyme Q10 100 mg capsule (CoQ-10) 100 mg PO QAM plant stanol paolo 450 mg tablet 900 mg PO QAM red yeast rice 600 mg tablet 1,200 mg PO QAM Continue as directed sumatriptan succinate 100 mg tablet 50 mg PO DAILY PRN(if needed) ASK your surgeon for instructions celecoxib 200 mg capsule (Celebrex) 200 mg PO QAM STOP taking 2 weeks before surgery coenzyme Q10 100 mg capsule (CoQ-10) 100 mg PO QAM plant stanol paolo 450 mg tablet 900 mg PO QAM red yeast rice 600 mg tablet 1,200 mg PO QAM Take morning of surgery With a small sip of water, OTHERWISE NOTHING TO EAT OR DRINK AFTER MIDNIGHT: aspirin 81 mg capsule 81 mg PO QAM (unless directed otherwise by surgeon) Other Notes If you have any questions please call us at [phone] or [phone] or [phone] or [phone]
--- NOTE | 2022-08-08 14:28 | Anesthesiology Consultation ---
Date of Service August 08, 2022 Assessment & Plan (1) Encounter for pre-operative examination: - COVID screening: Per assessment on 08/08: No known COVID-19 positive contacts or current COVID-19 related symptoms. Travel screen negative. Patient vaccinated. Pt was Covid positive 06/12/22 (home test), symptoms at time: sinus congestion, slight fever, sore throat > resolved. Covid test done 08/08/22 ([facility] PAT) was negative. - S/P Right TKA (07/28/19): SAB at L3/4 (x1 attempt) + PNB at [facility]. No issues noted per post-op anesthesia progress note. Per post-op note, "postoperative migraine and used Imitrex with resolution of headache." - Outpatient joint assessment: Pt currently scheduled for inpatient pathway. If surgeon requests review for outpatient joint pathway, patient is acceptable candidate for outpatient joint program from anesthesia standpoint pending surgeon's office assessment of pt motivation/strong home support/completion of same day joint program preop requirements. - PCP office visit (08/04/22): "No contraindications for proposed L knee surgery from primary care stand point" Chart Review Chart Review: Acceptable Risk for Surgery and Patient seen in Pre Admission Testing Teaching & Discussion Pre-Anesthesia Teaching/Discussion Notes: Instructed NPO after midnight before surgery,except medications with 15 cc of water. Medication instructions provided according to the PAT guidelines. History Surgery Operation Date: 08/28/22 09:30 Proposed Procedures p Left Total Knee Arthroplasty - Jose Vilchis MD Height/Weight Height: 5 ft 4 in Weight: 63.1 kg Allergies Allergy/AdvReac Type Severity Reaction Status Date / Time No Known Allergies Allergy Verified 08/05/22 11:18 Medications Home Medications Medication Instructions Recorded Confirmed Last Taken sumatriptan succinate 100 mg tablet 50 mg PO DAILY PRN Migraine 06/24/19 08/05/22 07/27/19 15:30 Headache aspirin 81 mg capsule 81 mg PO QAM 08/05/22 08/05/22 Unknown celecoxib 200 mg capsule (Celebrex) 200 mg PO QAM 08/05/22 08/05/22 Unknown coenzyme Q10 100 mg capsule 100 mg PO QAM 08/05/22 08/05/22 Unknown (CoQ-10) plant stanol paolo 450 mg tablet 900 mg PO QAM 08/05/22 08/05/22 Unknown red yeast rice 600 mg tablet 1,200 mg PO QAM 08/05/22 08/05/22 Unknown Past Medical History Medical History (Updated 08/08/22 @ 14:41 by Cristine Alvarez) History of COVID-201906/12/22 (home test), symptoms at time: sinus congestion, slight fever, sore throat > resolved HLD (hyperlipidemia) Migraine Osteoarthritis Exercise / Class Metabolic Activity II 4-5 Yardwork/Stairs/Walk up hill Past Family History Family History Mother , age 94 Diabetes TIA (transient ischemic attack) Colorectal cancer Father , 89 Heart disease Stroke Other No family history of adverse response to anesthesia Past Surgical History Surgical History History of tooth extraction History of total right knee replacement (TKR) Right TKA (07/28/19): SAB at L3/4 (x1 attempt) + PNB at [facility]. No issues noted per post-op anesthesia progress note. Per post-op note, "postoperative migraine and used Imitrex with resolution of headache." Hx of colonoscopy Past Anesthesia History No Family Hx of Anesthesia Complications and Other (Right TKA (07/28/19): SAB at L3/4 (x1 attempt) + PNB at [facility]. No issues noted per post-op anesthesia progress note. Per post-op note, "postoperative migraine and used Imitrex with resolution of headache.") History of PONV No Hx of PONV and No Hx of Motion Sickness Social History Smoking Status: Never smoker Do You Dip or Chew Tobacco: No Hx Alcohol Use: No Hx Substance Use: No substance use type: does not use Review of Systems Patient denies chest pain, shortness of breath, dyspnea on exertion, fever, chills, cough, wheezing, palpitations. Physical Exam Vital Signs VITALS BP 142/81 P 80 TEMP 97.9 SP02 100%RA RESP 16 PHYSICAL Full cervical extension range of motion. Full TMJ range of motion. TMD 4 finger breaths Mallampati Score 2 Dentition: intact, + crown Lungs: clear throughout to auscultation Cardiac: regular rate and rhythm, no murmurs noted Spine: normal Carotid arteries: negative bruit Extremities: no edema Lab Results Anesthesia Preop Results Results Anesthesia Widget: WBC 5.26 K/ul (4.8-10.8) 08/08/22 Hgb 14.2 g/dl (12.0-16.0) 08/08/22 Hct 41.5 % (34.1-44.9) 08/08/22 Plt 262 K/uL (130-400) 08/08/22 HA1c 5.7 % (4.5-5.6) H 08/08/22 Urine Color Yellow 08/08/22 Urine Appearance Clear (Clear) 08/08/22 Urine pH 5.5 (4.5-7.5) 08/08/22 Urine Specific Pep 1.013 (1.000-1.030) 08/08/22 Urine Protein Negative (Negative) 08/08/22 Urine Glucose (UA) Negative (Negative) 08/08/22 Urine Ketones Negative (Negative) 08/08/22 Urine Blood Negative (Negative) 08/08/22 Urine Nitrite Negative (Negative) 08/08/22 Urine Bilirubin Negative (Negative) 08/08/22 Urine Urobilinogen Negative (Negative) 08/08/22 Urine Leukocyte Esterase Negative (Negative) 08/08/22 Blood Type A Positive 08/08/22 Antibody Screen NEGATIVE 08/08/22 Testing Laboratory Results 08/04/22 SODIUM 142 POTASSIUM 4.6 CHLORIDE 104 CO2 29 BUN 16 CREATININE 0.7 GLUCOSE 90 PT 12.4 PTT 28 INR 0.9 Electrocardiogram Date: 08/08/22 Findings: + NSR @ (63) Chest X-Ray Date: 08/08/22 FINDINGS: Cardiomediastinal and hilar silhouettes are within normal limits. Mild right hemidiaphragmatic elevation. No pneumothorax, pleural effusion, airspace consolidation or overt pulmonary edema. Degenerative changes of the shoulders and spine. IMPRESSION: No acute process. COVID-19 Risk Screen Screening Information COVID-19 Screen Date: 08/08/22 Exposure 21 Days Family/Household +COVID Last 21 Days: No Exposure 10 Days Any COVID Exposure Last 10 Days: No Symptoms Last 10 Days Experienced COVID Sx Last 10 Days: No + COVID 0-90 Days COVID + in Last 0-90 Days: Yes + COVID Test 0-10 Day: No + COVID Test 11-90 Day: Yes
--- NOTE | 2022-08-27 06:59 | History & Physical Report ---
Date of Service August 27, 2022 Assessment & Plan (1) Primary osteoarthritis of left knee: Plan: Treatment options discussed with the patient. She has failed conservative measures as above. She would like to proceed with surgical intervention. Risks, benefits and alternatives to surgery including but not limited to infection, DVT, pain, stiffness, need for revision surgery, damage to blood vessels, damage to nerves, PE, , were discussed with the patient and they wish to proceed. Plan for left total knee arthroplasty at [facility] on August [address] Vilchis. We will plan on outpatient PT postop. We will plan on aspirin 81 mg twice daily for 1 month postop for DVT prophylaxis. All questions answered. She will follow-up postop. History of Present Illness Chief Complaint: Left knee pain Primary Care Provider: Erendira Biswas 71-year-old female past medical history significant for migraines, right total knee who presents with ongoing left knee pain. She has failed conservative measures including injections and anti-inflammatories. Pain is interfering with her daily activities. She would like to proceed with knee replacement. Patient denies headaches, sweats, fevers, chills, double vision, blurred vision, cough, sore throat, dysphagia, chest pain, sob, wheezing, n/v/d/c, numbness, tingling, fatigue, urinary symptoms, mood disorders. ROS positive for left knee pain and stiffness. Allergies Allergy/AdvReac Type Severity Reaction Status Date / Time No Known Allergies Allergy Verified 08/05/22 11:18 Home Medications Medication Instructions Recorded Confirmed Type sumatriptan succinate 100 mg tablet 50 mg PO DAILY PRN Migraine 06/24/19 08/05/22 History Headache aspirin 81 mg capsule 81 mg PO QAM 08/05/22 08/05/22 History celecoxib 200 mg capsule (Celebrex) 200 mg PO QAM 08/05/22 08/05/22 History coenzyme Q10 100 mg capsule 100 mg PO QAM 08/05/22 08/05/22 History (CoQ-10) plant stanol paolo 450 mg tablet 900 mg PO QAM 08/05/22 08/05/22 History red yeast rice 600 mg tablet 1,200 mg PO QAM 08/05/22 08/05/22 History Past Med/Surg History Medical History (Updated 08/27/22 @ 06:58 by Anton Mccollum PA-C) History of COVID-19 201906/12/22 (home test), symptoms at time: sinus congestion, slight fever, sore throat > resolved HLD (hyperlipidemia) Migraine Osteoarthritis Surgical History History of tooth extraction History of total right knee replacement (TKR) Right TKA (07/28/19): SAB at L3/4 (x1 attempt) + PNB at [facility]. No issues noted per post-op anesthesia progress note. Per post-op note, "postoperative migraine and used Imitrex with resolution of headache." Hx of colonoscopy Family History Mother , age 94 Diabetes TIA (transient ischemic attack) Colorectal cancer Father , 89 Heart disease Stroke Other No family history of adverse response to anesthesia Social History Smoking Status: Never smoker Second Hand Exposure: No; Hx Alcohol Use: No Hx Substance Use: No Preferred Language: Georgian Communication Ability: Effective Bus Mechanic Required: No Beliefs That Will Affect Care: None Current Living Situation: Spouse Feels Safe at Home: Yes Assistive Devices: Glasses Review of Systems All systems reviewed & are unremarkable except as noted in HPI & below Physical Exam Constitutional: well developed and well nourished; no acute distress Eyes: PERRL, conjunctivae normal, anicteric sclerae ENMT: external ear and nose normal, oropharynx normal Neck: trachea midline, no thyromegaly Respiratory: normal respiratory effort, lungs clear to auscultation Cardiovascular: RRR, no murmur, no edema Musculoskeletal: Left knee: Varus alignment. Mild effusion with medial joint line tenderness. There is pain with motion. Yaa's is guarded. Stable to valgus and varus stress test. Range of motion 5 to 130 degrees. Skin: no rashes, warm and dry Neurologic: patellar DTR's 2+ bilat, sensation intact Psychiatric: A+Ox3, euthymic affect Results & Data ([facility]) Diagnostic Findings Left knee radiographs demonstrate end-stage osteoarthritis left knee, [id number] medial compartment. There is periarticular osteophyte formation.
[2022-08-28] MEDS ORDERED: CeleBREX 200 MG CAP PO SCH (06:00)
[2022-08-28] MEDS ORDERED: ceFAZolin 2000MG 2,000 MG/15 ML SYR IV SCH (06:00)
[2022-08-28] MEDS ORDERED: LR 500ML BOLUS, THEN 15ML/HR IV SCH (06:00)
[2022-08-28] MEDS ORDERED: TRANEXAMIC ACID 1,000 MG **IV Pre-op IV SCH (06:00)
[2022-08-28] MEDS ORDERED: METOCLOPRAMIDE HCL 10 MG TABLET PO SCH (06:00)
[2022-08-28] MEDS ORDERED: ACETAMINOPHEN 500 MG TAB PO SCH (06:00)
[2022-08-28] MEDS ORDERED: dexAMETHasone 4 MG TAB PO SCH (06:00)
[2022-08-28] MEDS ORDERED: GABAPENTIN 300 MG CAP PO SCH (06:00)
[2022-08-28] MEDS ORDERED: FAMOTIDINE 20 MG TAB PO SCH (06:00)
[2022-08-28] MEDS ORDERED: TRANEXAMIC ACID 1,000 MG **IV Intra-op IV SCH (06:00)
[2022-08-28] MEDS ORDERED: BUPIVACAINE 0.5 % 5 MG/1 ML PF 10ML VIAL ONE (06:27)
[2022-08-28] MEDS ORDERED: ROPIVACAINE 0.5% 5 MG/ML 30 ML VIAL ONE (06:32)
[2022-08-28] MEDS ORDERED: MIDAZOLAM HCL 1 MG/ML 2ML VIAL ONE ×2 (06:40)
[2022-08-28] MEDS ORDERED: PROPOFOL IV EMULSION 10 MG/ML 20 ML VIAL IV ONE ×2 (06:40→08:23)
[2022-08-28] MEDS ORDERED: LIDOCAINE 2% MPF LOCAL 5 ML VIAL INFIL ONE (06:40)
[2022-08-28] MEDS ORDERED: fentaNYL citrate 100 MCG/2 ML VIAL ONE (06:41)
[2022-08-28] MEDS ORDERED: fentaNYL citrate 100 MCG/2 ML VIAL IV PRN (06:45)
[2022-08-28] MEDS ORDERED: ONDANSETRON INJ 2 MG/ML 2 ML VIAL IV PRN ×2 (06:45→10:51)
[2022-08-28] MEDS ORDERED: ePHEDrine sulfate 50 MG/ML AMP IV PRN (06:45)
[2022-08-28] MEDS ORDERED: ATROPINE SULFATE 0.1 MG/ML 10ML SYR IV PRN (06:45)
--- NOTE | 2022-08-28 07:25 | History & Physical Bridge Note ---
Date of Service August 28, 2022 History & Physical Bridge Note I have examined the patient, reviewed the History & Physical and in the interval since the performance of the History & Physical I have noted the following changes of clinical significance: no changes noted
[2022-08-28] MEDS ORDERED: ROPIVACAINE 0.5% HCL/PF 150 MG, BUPIVACAINE 0.75% MPF 20 ML, EPINEPHrine 30MG/30ML (OR ... INSTIL ONE (08:00)
--- NOTE | 2022-08-28 09:11 | Operative Report ---
Post Operative Report Pre & Post Diagnosis Operation Date: 08/28/22 07:00 Pre-Op Diagnosis: Left Knee Osteoarthritis Post-Op Diagnosis: Left Knee Osteoarthritis I identified the patient and participated in the time-out.: Yes Procedure Operation Date: 08/28/22 07:00 Actual Procedures p Left Total Knee Arthroplasty(Left), lateral release, alicia and Acticoat superficial wound VAC application- Jose Vilchis MD Surgeon Jose Vilchis MD Nephrology Nurse Jos MCFADDEN Estimated Blood Loss 5 Findings Consistent with Post-Op Diagnosis Specimens Bone cuts Drains 2 Hemovac Anesthesia Type MAC Spinal Regional Complications none Disposition Disposition: Recovery Room Indications 71-year-old female with chronic left knee pain with progressive osteoarthritis [id number] medial compartment with a varus knee. She has successful right knee replacement in the past and wants proceed with left knee replacement at this time. Description of Procedure Patient was taken to the operating room placed supine on the operating table and anesthetized under spinal MAC regional block anesthesia. Exam under anesthesia demonstrated 10 degree flexion contracture with flexion to 130 degrees varus knee no instability and no effusion. A pneumatic tourniquet was placed about the thigh of the left lower extremity. The left lower extremity was prepped and draped in usual sterile fashion. The leg was elevated exsanguinated with an Esmarch bandage and the pneumatic tourniquet was raised to 325 mm mercury. An anterior incision was made across the left knee. The skin was incised longitudinally subcutaneous flaps were elevated and an incision was made through the medial retinaculum extending up into the mid third of the quadriceps tendon and extended down to the medial tibial tubercle. Intra-articular findings demonstrated anteromedial [id number] medial compartment with grade 3-4 patellofemoral OA with articular thinning on both facets of the patella. There was synovitis through multiple areas of the joint.. The knee was exposed by excising the infrapatellar fat pad, excising the meniscal remnants and anterior cruciate ligament. Any inflamed synovial tissue was resected. The fat pad over the anterior femur was resected for placement of the component in that area. The lateral synovial bands were release. The femur was exposed. The custom femoral cutting block was pinned in position. The distal femoral cutting block was applied. The distal femoral cut was made with the oscillating saw. The size 9, 4-in-1 cutting block was placed. The anterior and posterior chamfer cuts were made. The knee was extended and a subperiosteal peel lateral release was performed around the patella. The patella width was measured and width was reproduced using freehand cut technique. The 35 millimeter symmetrical patella was used. 3 drill holes are made for the pegs. The tibia was exposed. A custom tibial cutting block was positioned and drill holes were made for the cutting guide. Cutting guide was placed and the proximal cut was made with the oscillating saw. All osteophytes were resected. The lamina auditor/quality was used to assess ligamentous balance and the ligaments were balanced in extension and flexion. Small medial posterior medial release was required to balance flexion extension gaps and the PCL was partially released on the medial side. The tibia was reexposed and measured for a size E tibial component. This was externally rotated in line with the tibial tubercle and the fixation pins were drilled. The proximal tibia was fashioned with the drill and punch. The size 9 CR femoral trial was inserted. The trial MC inserts were used. The 10 mm insert gave balanced ligaments through full range of motion. The patella tracked some lateral tilt so I did a lateral release of any synovium intact neck corrected the patella tracking to central tracking through full range of motion. the trials were removed. The orthomix anesthetic cocktail was injected per protocol. The knee was then copiously irrigated with pulsatile lavage saline solution. The final components were cemented with Refobacin bone cement. The final components were [employer] persona left size 9 narrow CR femoral component, left D tibial component, 10 mm MC tibial polyethylene and a 35 mm symmetrical patella polyethylene. After the cement cured with the knee in full extension the Betadine soak was used per protocol. The knee joint was copiously irrigated with pulsatile lavage saline solution . 2 drains were brought out laterally and connected to a Hemovac. The quadriceps tendon and medial retinaculum were closed with interrupted [id number] #1 Vicryl sutures. The knee was taken through a full range of motion and repair was secure. Range of motion 0 through 135 degrees. The subcutaneous tissues were closed with 2-0 Vicryl sutures and skin was closed with fiordaliza. Alicia and Acticoat superficial wound VAC was applied and the patient tolerated the procedure well. Jos MCFADDEN my physician financial legal assistant participated as automotive parts counter assistant and was integral part in all aspects of the procedure. He assisted in soft tissue retraction, instrument management ,leg positioning, the closure, application of superficial wound VAC and will participate in the postoperative care of the patient. I attest to the content of the Intraoperative Record and any orders documented therein. Any exceptions are noted below.
[2022-08-28] MEDS ORDERED: PHENYLEPHRINE 100MCG/ML 5ML SYR ONE (09:28)
--- NOTE | 2022-08-28 10:37 | Anesthesiology Progress Note ---
Date of Service August 28, 2022 Anesthesia Post Procedure Vital Signs Vital Signs: Temp Pulse Pulse Resp BP BP Pulse Ox 08/28/22 10:35 97.3 F L 65 16 116/67 96 08/28/22 10:25 68 17 112/62 98 08/28/22 10:15 69 14 108/65 94 08/28/22 10:05 67 14 109/57 L 97 08/28/22 09:55 70 14 97/63 L 95 08/28/22 09:48 96.8 F L 76 21 97/49 L 98 08/28/22 05:44 98.4 F 76 20 150/82 H 99 O2 Del Method 08/28/22 10:35 Room Air 08/28/22 10:25 Room Air 08/28/22 10:15 Room Air 08/28/22 10:05 Room Air 08/28/22 09:55 Room Air 08/28/22 09:48 Room Air 08/28/22 05:44 Room Air Transfer of Care Handoff Completed per policy Notes Mental Status: alert / awake / arousable and participated in evaluation Patient Amnestic to Procedure: Yes Nausea / Vomiting: adequately controlled Pain: adequately controlled Airway Patency, RR, SpO2: stable & adequate BP & HR: stable & adequate Hydration State: stable & adequate Neuraxial Anesthesia: was administered and sensory block is resolving Anesthetic Complications: no major complications apparent and Pt Satisfied with anesthetic care
[2022-08-28] MEDS ORDERED: SODIUM CHLORIDE 0.9% 1000ML 1,000 ML IV SCH (10:51)
[2022-08-28] MEDS ORDERED: bisacodyL 10 MG SUPP PR PRN (10:51)
[2022-08-28] MEDS ORDERED: NALOXONE HCL 0.4 MG/1 ML VIAL/CARP IV PRN (10:51)
[2022-08-28] MEDS ORDERED: MAGNESIUM HYDROXIDE SUSP 30 ML UDC PO PRN (10:51)
[2022-08-28] MEDS ORDERED: METOCLOPRAMIDE HCL INJ 5 MG/ML 2 ML VIAL IV PRN (10:51)
[2022-08-28] MEDS ORDERED: HYDROmorphone INJ 0.5 MG/0.5 ML SYR IV PRN (10:51)
[2022-08-28] MEDS ORDERED: SUMAtriptan succinate 50 MG TAB PO PRN (10:51)
--- NOTE | 2022-08-28 11:27 | Hospitalist Consultation ---
Date of Consultation August 28, 2022 Assessment & Plan (1) Primary osteoarthritis of left knee: (2) Status post total left knee replacement: - Pain management, bowel regimen and DVT ppx per the primary team - PT/OT consults, pt is planning on outpatient therapy - Follow am CBC to monitor for acute blood loss, hgb 14.2 (3) Migraine: - Will give one dose sumatriptan 50 mg now for the beginning of a migraine. (4) HLD (hyperlipidemia): - Taking coenzyme Q10, Colestoff, which may resume on discharge - Diet and exercise encouraged (5) Pre-diabetes: - Last A1C was 5.7 on 08/08/22 (6) Osteoarthritis: - Stable DVT ppx: - teds, scds, baby aspirin CODE: Full code Dispo: From home, likely to remain in the hospital x 1-2 days Thank you for involving us in the care of Mrs. Mendez. If you have any questions or concerns please do not hesitate to call. At this time medicine will follow along. Supervising Physician Co-Signing Physician Notes 08/28/2022 The patient was seen and examined in medical floor in presence of the family members She complains to have pain in the left knee but denies any other symptoms No chest pain, palpitation no shortness of breath No abdominal pain, nausea and/or vomiting Upon examination Sitting on a chair without any acute distress Hemodynamically stable Chestclear to auscultate bilaterally HeartS1, S2 regular Abdomenbenign CNSalert, awake and oriented x3 Her preadmission labs, EKG and imaging studies reviewed Remains stable following total left knee replacement Agree with assessment and plan as outlined above by Jessica Casper History of Present Illness Reason for Consultation: Med management Requesting Physician: Dr. Vilchis Attending Physician: Jose Vilchis MD History of Present Illness This is a 71 yo F with PMHx of migraine, osteoarthritis, HLD, who presents from home for elective left total knee arthroplasty by Dr. Vilchis today on 08/28/2022. Her , had 2 children present with her at bedside, she has a total of 5 children reports the rest will be coming to visit her later. She complains of the beginning of a left temporal headache starting, frequently gets migraines at home and takes 50 mg of sumatriptan succinate. She is doing well since having surgery, is still very numb and cannot feel the lower part of her leg and the left status post knee surgery. She is able to wiggle her toes without difficulty but cannot feel them moving. Has not eaten anything yet but is tolerating liquids without nausea or difficulty swallowing. She reports taking her home [id number] anticholesterol meds to avoid statin use. She previously had her right knee done by Dr. Vilchis 2 years ago. Allergies Allergy/AdvReac Type Severity Reaction Status Date / Time No Known Allergies Allergy Verified 08/28/22 05:40 Home Medications Medication Instructions Recorded Confirmed Type sumatriptan succinate 100 mg tablet 50 mg PO DAILY PRN Migraine 06/24/19 08/28/22 History Headache aspirin 81 mg capsule 81 mg PO QAM 08/05/22 08/28/22 History celecoxib 200 mg capsule (Celebrex) 200 mg PO QAM 08/05/22 08/28/22 History coenzyme Q10 100 mg capsule 100 mg PO QAM 08/05/22 08/28/22 History (CoQ-10) plant stanol paolo 450 mg tablet 900 mg PO QAM 08/05/22 08/28/22 History red yeast rice 600 mg tablet 1,200 mg PO QAM 08/05/22 08/28/22 History Patient History Medical History History of COVID-19 2020 06/12/22 (home test), symptoms at time: sinus congestion, slight fever, sore throat > resolved HLD (hyperlipidemia) Migraine Osteoarthritis Surgical History History of tooth extraction History of total right knee replacement (TKR) Right TKA (07/28/19): SAB at L3/4 (x1 attempt) + PNB at [facility]. No issues noted per post-op anesthesia progress note. Per post-op note, "postoperative migraine and used Imitrex with resolution of headache." Hx of colonoscopy Family History Mother , age 94 Diabetes TIA (transient ischemic attack) Colorectal cancer Father , 89 Heart disease Stroke Other No family history of adverse response to anesthesia Social History Smoking Status: Never smoker Second Hand Exposure: No; Do You Dip or Chew Tobacco: No; Tobacco Cessation Education Requested by Patient: No Hx Alcohol Use: No Hx Substance Use: No Preferred Language: Malay Communication Ability: Effective Attorney At Law Required: No Beliefs That Will Affect Care: None marital status: Current Living Situation: Spouse Other Information That Helps Us Care for You: No Feels Safe at Home: Yes Safety Concerns: Feels Safe At This Time Assistive Devices: Walker Review of Systems Review of Systems: Constitutional: No fever, sweats or chills, + left temporal headache as per HPI Eyes: No diplopia, no worsening or blurred vision ENT: normal hearing, no trouble swallowing Respiratory: No cough, sputum, dyspnea at rest or on exertion Cardiovascular: No chest pain, tightness or palpitations Abdomen: No pain, nausea, vomiting, diarrhea or constipation Musculoskeletal: + Left lower extremity numbness status post L TKA, otherwise no joint pain, calf pain, swelling Neurologic: No weakness, numbness/tingling, or balance problems Psychiatric: No anxiety or depression Skin: No rash or itch Physical Exam Physical Exam: General: awake, alert, no apparent distress Head: Normocephalic, atraumatic ENT: PERRL, EOMI, no pharyngeal exudate, mucous membranes moist Chest: Clear to auscultation, on room air, no adventitious breath sounds Cardiac: Regular rate and rhythm, no murmur, no JVD, normal peripheral pulses, good capillary refill Abdominal: NABS x 4 quadrants, soft, nondistended, nontender to palpation, no rebound or guarding Extremities: s/p right healed TKA, Left leg with YOLIS wrap in placed, icepack on, no sensation to light touch s/p surgery, is able to move her toes without difficulty. Otherwise normal inspection, no peripheral edema or erythema, calfs nontender to palpation Psych: Normal mood and affect Neuro: AAO x 3, strength intact bilaterally and rated 5/5, no motor deficits, speech is clear, no peripheral sensory deficits Results & Data Results & Data ([facility]) Vital Signs (Past 12 Hours) Vital Signs Temp Pulse Pulse Resp BP BP Pulse Ox 08/28/22 11:15 61 16 114/78 100 08/28/22 10:45 36.2 C L 69 16 113/67 98 08/28/22 10:35 36.3 C L 65 16 116/67 96 08/28/22 10:25 68 17 112/62 98 08/28/22 10:15 69 14 108/65 94 08/28/22 10:05 67 14 109/57 L 97 08/28/22 09:55 70 14 97/63 L 95 08/28/22 09:48 36.0 C L 76 21 97/49 L 98 08/28/22 05:44 36.9 C 76 20 150/82 H 99 O2 Del Method 08/28/22 11:15 Room Air 08/28/22 10:45 Room Air 08/28/22 10:35 Room Air 08/28/22 10:25 Room Air 08/28/22 10:15 Room Air 08/28/22 10:05 Room Air 08/28/22 09:55 Room Air 08/28/22 09:48 Room Air 08/28/22 05:44 Room Air Laboratory Results 08/28/22 Unknown SARS-CoV-2, RNA, NAAT NEGATIVE
[2022-08-28] MEDS ORDERED: SUMAtriptan succinate 50 MG TAB PO ONE (11:50)
--- NOTE | 2022-08-28 12:38 | XRay Report ---
TWO VIEWS LEFT KNEE CLINICAL HISTORY: Postoperative examination. FINDINGS: AP and crosstable lateral portable views of the left knee are obtained. A left knee arthrop lasty is in near anatomic alignment. There has been undersurface remodeling of the patella. No acute fracture is seen. There are expected postoperative changes around the knee including skin clips, a oneal rgical drain, soft tissue edema, and subcutaneous gas. IMPRESSION: Expected postoperative changes status post left knee arthroplasty. No acute fracture is s een. ACT 112: Negative or not required by law. Electronically signed by: Irving Brito M.D. 08/28/2022 12:36 PM
[2022-08-28] MEDS: ACETAMINOPHEN 500 MG TAB PO SCH ×2 (14:41→20:58)
[2022-08-28] MEDS: ceFAZolin 1000MG 1,000 MG/7.5 ML SYR IV SCH (19:45)
[2022-08-28] MEDS: ASPIRIN 81 MG ECTAB PO SCH (20:58)
[2022-08-28] MEDS: CeleBREX 200 MG CAP PO SCH (20:58)
[2022-08-28] MEDS: oxyCODONE HCL IR 5 MG TAB (IMMEDIATE RELEASE) PO PRN (21:03)
[2022-08-28] MEDS: DOCUSATE SODIUM 100 MG CAP PO SCH (21:04)
[2022-08-28] MEDS: SENNA 8.6 MG TAB PO SCH (21:04)
[2022-08-29] MEDS: ceFAZolin 1000MG 1,000 MG/7.5 ML SYR IV SCH (02:56)
[2022-08-29] MEDS: oxyCODONE HCL IR 5 MG TAB (IMMEDIATE RELEASE) PO PRN ×4 (02:58→18:37)
[2022-08-29] MEDS: ACETAMINOPHEN 500 MG TAB PO SCH ×4 (05:38→22:47)
[2022-08-29] MEDS: MULTIVITAMIN TAB PO SCH (07:58)
[2022-08-29] MEDS: CeleBREX 200 MG CAP PO SCH ×2 (07:59→20:05)
[2022-08-29] MEDS: DOCUSATE SODIUM 100 MG CAP PO SCH ×2 (07:59→20:06)
[2022-08-29] MEDS: ASPIRIN 81 MG ECTAB PO SCH ×2 (07:59→20:06)
--- NOTE | 2022-08-29 08:18 | Orthopedic Progress Note ---
Date of Service August 29, 2022 Assessment & Plan (1) Primary osteoarthritis of left knee: Plan: Postop day #1 left total knee arthroplasty -PT/OT -Pain management as written -DVT prophylaxis: SCDs, teds, aspirin 81 mg twice daily -A.m. labs are pending -Discharge planning plan on discharge home with plans on attending outpatient PT when stable Admission and Anticipated Discharge Date Admission Date: August 28, 2022 Subjective Patient is postop day 1 left total knee. She is doing well this morning. Pain well controlled. No current complaints. Denies chest pain, shortness of breath, nausea/vomiting/diarrhea, lightheadedness or dizziness. Review of Systems Review of Systems: All systems reviewed & are unremarkable except as noted in Subjective Physical Exam Physical Exam: Left knee: Dressing is clean, dry, intact. Hemovac on suction. Toes are mobile with good dorsiflexion. No calf tenderness. Distally neurovascular status and sensation intact. Constitutional: WD/WN, vitals as above Results & Data ([facility]) Vital Signs (Past 12 Hours) Vital Signs Temp Pulse Resp BP BP Pulse Ox O2 Del Method 08/29/22 07:36 36.6 C 66 16 139/76 95 Room Air 08/29/22 03:09 36.8 C 78 18 119/68 97 Room Air 08/28/22 22:52 36.7 C 71 16 105/71 97 Room Air
[2022-08-29 09:34] LABS: Hematocrit (blood only) 35.4 % (34.1-44.9); Hemoglobin 11.9 g/dl (12.0-16.0); Mean Corpuscular Hemoglobin 31.1 pg (25.0-34.0); Mean Corpuscular Hgb Conc 33.6 g/dL (32.0-36.0); Mean Corpuscular Volume 92.4 fL (80.0-100.0); Mean Platelet Volume 10.5 fL (9.4-12.3); Platelet Count 228 K/uL (130-400); RDW Coefficient of Variation 12.7 % (11.5-14.5); RDW Standard Deviation 42.4 fL (36.4-46.3); Red Blood Count 3.83 M/uL (3.93-5.22); White Blood Count 10.19 K/ul (4.8-10.8)
[2022-08-29 10:24] LABS: BUN Creatinine Ratio 30.7 (10-20); Creatinine Clr Calc Pharmacy 61.1 ml/min; Est GFR (African American) 94.3 ml/min; Est GFR (Non-African American) 81.3 ml/min; Potassium 3.9 mmol/L (3.5-5.1)
--- NOTE | 2022-08-29 10:56 | Hospitalist Progress Note ---
Date of Service August 29, 2022 Assessment & Plan (1) Primary osteoarthritis of left knee: (2) Status post total left knee replacement: Plan: -POD #1 s/p L TKA by Dr. Vilchis - Pain management, bowel regimen and DVT ppx per the primary team - PT/OT consults, pt is planning on outpatient therapy - Follow am CBC to monitor for acute blood loss, hgb 14.2 -> 11.9 (3) Migraine: Plan: -Sumatriptan PRN for migraines (4) HLD (hyperlipidemia): Plan: - Taking coenzyme Q10, Colestoff, which may resume on discharge - Diet and exercise encouraged (5) Pre-diabetes: Plan: - Last A1C was 5.7 on 08/08/22 (6) Osteoarthritis: Plan: - Stable DVT ppx: - teds, scds, baby aspirin CODE: Full code Thank you for this consultation. We will follow the patient with you during their hospital stay. You can reach a [facility]05 via [employer]. Admission and Anticipated Discharge Date Admission Date: August 28, 2022 Supervising Physician Co-Signing Physician Notes Attending addendum: The patient was seen and examined in medical floor She has pain in the left knee but denies any other symptoms She remains hemodynamically stable and has been ambulating in the room without any difficulties On examination No apparent distress at rest Hemodynamically stable Chestclear HeartS1-S2, regular Abdomenbenign Extremitiestrace edema bilaterally more on the left than the right CNSalert, awake and oriented x3 Her labs and imaging studies reviewed Status post left knee arthroplasty remains medically stable Agree with assessment and plan as outlined above by NESTOR Rasmussen DR Subjective Patient seen and examined in 318-1. Having some discomfort in left knee after ambulating into bedside chair but planning to work with therapy soon. Denies any other events overnight. No fever, chills, lightheadedness, chest pain, nausea, vomiting, abdominal pain, dysuria, diarrhea or constipation. Review of Systems Review of Systems: At least ten systems reviewed and negative except as noted in the HPI. Physical Exam Physical Exam: Gen: WD/WN, NAD, sitting in bedside chair, A&Ox3 HEENT: Normocephalic, atraumatic, conjunctivae moist, sclerae anicteric, mucous membranes moist Lung: Clear to Auscultation bilaterally, no wheezes/rales/rhonchi Heart: Regular rate, regular rhythm, no murmurs, rubs, or gallops Abdomen: Soft, NT, ND +BS x 4 Extremities: + L knee with surgical dressing c/d/i. + Drain visualized Skin: Warm, no rash Results & Data Results & Data ([place]) Vital Signs (Past 12 Hours) Vital Signs Temp Pulse Resp BP Pulse Ox O2 Del Method 08/29/22 07:36 36.6 C 66 16 139/76 95 Room Air 08/29/22 03:09 36.8 C 78 18 119/68 97 Room Air Laboratory Results Short CBC 08/29/22 Range/Units 09:10 WBC 10.19 (4.8-10.8) K/ul Hgb 11.9 L (12.0-16.0) g/dl Hct 35.4 (34.1-44.9) % Plt Count 228 (130-400) K/uL BMP 08/29/22 09:10 Sodium 144 Potassium 3.9 Chloride 109 H Carbon Dioxide 30 BUN 23 Creatinine 0.75 Glucose 112 H Calcium 9.0 Diagnostic Findings Knee X-Ray 08/28/22 09:47 TWO VIEWS LEFT KNEE CLINICAL HISTORY: Postoperative examination. FINDINGS: AP and crosstable lateral portable views of the left knee are obtained. A left knee arthroplasty is in near anatomic alignment. There has been undersurface remodeling of the patella. No acute fracture is seen. There are expected postoperative changes around the knee including skin clips, a surgical drain, soft tissue edema, and subcutaneous gas. IMPRESSION: Expected postoperative changes status post left knee arthroplasty. No acute fracture is seen. ACT 112: Negative or not required by law. Electronically signed by: Irving Brito M.D. 08/28/2022 12:36 PM
[2022-08-29] MEDS: SENNA 8.6 MG TAB PO SCH (20:07)
[2022-08-30] MEDS: oxyCODONE HCL IR 5 MG TAB (IMMEDIATE RELEASE) PO PRN ×2 (01:23→08:38)
[2022-08-30] MEDS: ACETAMINOPHEN 500 MG TAB PO SCH (05:35)
[2022-08-30 05:47] LABS: Hematocrit (blood only) 29.5 % (34.1-44.9); Hemoglobin 9.8 g/dl (12.0-16.0); Mean Corpuscular Hemoglobin 31.5 pg (25.0-34.0); Mean Corpuscular Hgb Conc 33.2 g/dL (32.0-36.0); Mean Corpuscular Volume 94.9 fL (80.0-100.0); Mean Platelet Volume 10.4 fL (9.4-12.3); Platelet Count 164 K/uL (130-400); RDW Standard Deviation 44.6 fL (36.4-46.3); Red Blood Count 3.11 M/uL (3.93-5.22); White Blood Count 6.05 K/ul (4.8-10.8)
--- NOTE | 2022-08-30 07:11 | Orthopedic Progress Note ---
Date of Service August 30, 2022 Assessment & Plan (1) Primary osteoarthritis of left knee: Plan: Postop day #2 left total knee arthroplasty -PT/OT -Pain management as written -DVT prophylaxis: SCDs, teds, aspirin 81 mg twice daily -A.m. labs-hemoglobin 9.8 this morning from 11 yesterday and 14 preop. Acute blood loss anemia due to surgical loss versus dilutional. -Discharge planning plan on discharge home with plans on attending outpatient PT when stable. Plan on discharge home today. Admission and Anticipated Discharge Date Admission Date: August 28, 2022 Subjective Patient is ambulating in room upon my arrival. She is doing well this morning. Pain is improved from last night. No other complaints. Denies chest pain, shor tness of breath, dizziness, lightheadedness, nausea/vomiting/diarrhea. Review of Systems Review of Systems: All systems reviewed & are unremarkable except as noted in Subjective Physical Exam Physical Exam: Left knee: Dressing is clean, dry, intact. Hemovac on suction. Toes are mobile with good dorsiflexion. No calf tenderness. Distally neurovascular status and sensation intact. Constitutional: WD/WN, vitals as above Results & Data ([facility]) Vital Signs (Past 12 Hours) Vital Signs Temp Pulse Resp BP Pulse Ox O2 Del Method 08/29/22 22:31 36.8 C 67 14 102/67 94 Room Air
[2022-08-30] MEDS: MULTIVITAMIN TAB PO SCH (08:39)
[2022-08-30] MEDS: DOCUSATE SODIUM 100 MG CAP PO SCH (08:40)
[2022-08-30] MEDS: CeleBREX 200 MG CAP PO SCH (08:40)
[2022-08-30] MEDS: ASPIRIN 81 MG ECTAB PO SCH (08:40)
--- NOTE | 2022-08-30 09:12 | Discharge Summary ---
Date of Service August 30, 2022 Admission HPI Per Admitting Provider 71-year-old female past medical history significant for migraines, right total knee who presents with ongoing left knee pain. She has failed conservative measures including injections and anti-inflammatories. Pain is interfering with her daily activities. She would like to proceed with knee replacement. Patient denies headaches, sweats, fevers, chills, double vision, blurred vision, cough, sore throat, dysphagia, chest pain, sob, wheezing, n/v/d/c, numbness, tingling, fatigue, urinary symptoms, mood disorders. ROS positive for left knee pain and stiffness. Admission Exam Per Admitting Provider Constitutional: well developed and well nourished; no acute distress Eyes: PERRL, conjunctivae normal, anicteric sclerae ENMT: external ear and nose normal, oropharynx normal Neck: trachea midline, no thyromegaly Respiratory: normal respiratory effort, lungs clear to auscultation Cardiovascular: RRR, no murmur, no edema Musculoskeletal: Left knee: Varus alignment. Mild effusion with medial joint line tenderness. There is pain with motion. Yaa's is guarded. Stable to valgus and varus stress test. Range of motion 5 to 130 degrees. Skin: no rashes, warm and dry Neurologic: patellar DTR's 2+ bilat, sensation intact Psychiatric: A+Ox3, euthymic affect Principal Diagnosis Left knee osteoarthritis Discharge Exam Left knee: Dressing is clean, dry, intact. Hemovac on suction. Toes are mobile with good dorsiflexion. No calf tenderness. Distally neurovascular status and sensation intact. Constitutional WD/WN, vitals as above Discharge Data Allergies Allergy/AdvReac Type Severity Reaction Status Date / Time No Known Allergies Allergy Verified 08/28/22 05:40 Consultations 08/28/22 05:00 Consult Hospitalist Routine Procedures Performed Operation Date: 08/28/22 07:00 Actual Procedures p Left Total Knee Arthroplasty(Left) - Jose Vilchis MD Ordered Studies 08/28/22 05:00 US - OR guided needle placemen Routine Hospital Course (1) Primary osteoarthritis of left knee: Postop day #2 left total knee arthroplasty -PT/OT -Pain management as written -DVT prophylaxis: SCDs, teds, aspirin 81 mg twice daily -A.m. labs-hemoglobin 9.8 this morning from 11 yesterday and 14 preop. Acute blood loss anemia due to surgical loss versus dilutional. -Discharge planning plan on discharge home with plans on attending outpatient PT when stable. Plan on discharge home today. Postop day #1 left total knee arthroplasty -PT/OT -Pain management as written -DVT prophylaxis: SCDs, teds, aspirin 81 mg twice daily -A.m. labs are pending -Discharge planning plan on discharge home with plans on attending outpatient PT when stable Lab Results 08/28/22 08/29/22 08/29/22 Range/Units Unknown 09:10 09:10 WBC 10.19 (4.8-10.8) K/ul RBC 3.83 L (3.93-5.22) M/uL Hgb 11.9 L (12.0-16.0) g/dl Hct 35.4 (34.1-44.9) % MCV 92.4 (80.0-100.0) fL MCH 31.1 (25.0-34.0) pg MCHC 33.6 (32.0-36.0) g/dL RDW Std Deviation 42.4 (36.4-46.3) fL RDW Coeff of Omaira 12.7 (11.5-14.5) % Plt Count 228 (130-400) K/uL MPV 10.5 (9.4-12.3) fL Sodium 144 (136-145) mmol/L Potassium 3.9 (3.5-5.1) mmol/L Chloride 109 H (98-107) mmol/L Carbon Dioxide 30 (21-32) mmol/L Anion Gap 5 (3-11) BUN 23 (6-23) mg/dl Creatinine 0.75 (0.6-1.2) mg/dl Est Cr Clr Drug Dosing 61.1 ml/min Est GFR ( Amer) 94.3 ml/min Est GFR (Non-Af Amer) 81.3 ml/min BUN/Creatinine Ratio 30.7 H (10-20) Glucose 112 H (70-99(Fasting)) mg/dl Calcium 9.0 (8.5-10.1) mg/dl SARS-CoV-2, RNA, NAAT NEGATIVE (NEGATIVE) 08/30/22 Range/Units 05:23 WBC 6.05 (4.8-10.8) K/ul RBC 3.11 L (3.93-5.22) M/uL Hgb 9.8 L (12.0-16.0) g/dl Hct 29.5 L (34.1-44.9) % MCV 94.9 (80.0-100.0) fL MCH 31.5 (25.0-34.0) pg MCHC 33.2 (32.0-36.0) g/dL RDW Std Deviation 44.6 (36.4-46.3) fL RDW Coeff of Omaira 13.0 (11.5-14.5) % Plt Count 164 (130-400) K/uL MPV 10.4 (9.4-12.3) fL Sodium (136-145) mmol/L Potassium (3.5-5.1) mmol/L Chloride (98-107) mmol/L Carbon Dioxide (21-32) mmol/L Anion Gap (3-11) BUN (6-23) mg/dl Creatinine (0.6-1.2) mg/dl Est Cr Clr Drug Dosing ml/min Est GFR ( Amer) ml/min Est GFR (Non-Af Amer) ml/min BUN/Creatinine Ratio (10-20) Glucose (70-99(Fasting)) mg/dl Calcium (8.5-10.1) mg/dl SARS-CoV-2, RNA, NAAT (NEGATIVE) Total Time Total Time Spent Total Time Spent (In Minutes): 20 Discharge Plan Discharge Items Patient Disposition: Home - Self-Care Reason For Visit: Left Knee Osteoarthritis Discharge Diagnosis: Left knee osteoarthritis Activity: Per Instructions section Non-emergency contact: Surgeon Call non-emergency contact if: you have any medication questions, your pain is not controlled, your pain is concerning for you, you have a fever, your temperature is above 101, your wound has increased redness, your wound has increased drainage and your wound pain has increased Follow-up/Referrals: Erendira Biswas PA-C [Primary Care Provider] - Diet: Regular Addtl Attending Provider Instructions: ACTIVITY RECOMMENDATIONS: SELF CARE INSTRUCTIONS AFTER TOTAL KNEE REPLACEMENT A. You may need to continue a physical therapy program after discharge from the hospital. There are several options available to you. Your doctor will assist you in selecting the best one for you. 1. An out-patient facility 2 to 3 times a week for therapy or home therapy. 2. Continue working on all exercises taught to you in the hospital. Your goals should be to increase bending of your knee to 90 degrees and beyond and to fully straighten your knee. B. You may progress at your own pace from walking with a walker or crutches to a cane; then to no assistive devices. C. Make walking a part of your daily routine. Be up as much as comfortable with rest periods throughout the day. Rest with leg elevation is very important. Use the ice wrap frequently for the first 3-4 weeks. D. There are no restrictions on activities. You may ride in a car, shop, participate in still cleaner and all social activities. E. Wear the long elastic stockings (DANITA hose) 20 hours a day for 2 weeks after surgery. They can be removed several times a day for laundering and for a bath. F. You may shower, no tub baths until cleared by your doctor. SPECIAL CARE INSTRUCTIONS: VERY IMPORTANT TO READ AND REVIEW A. There are a few signs you need to watch for after you are home. Call [facility] [place] if you notice any of the followin. Increased severe knee pain. Some pain is expected especially when you exercise. 2. Increased swelling in your leg or knee; pain or swelling of the calf muscle in either lower leg. 3. Any fluid drainage from the incision. 4. Shortness of breath or chest pain. B. Please call [facility] at if you have any concerns or questions about your operation or recovery. The doctor or his nurse will return your call promptly. C. You must take antibiotics before dental work, bladder, bowel or other surgery. Your doctor will provide you with a permanent care to carry describing this precaution. IMPORTANT: * REMEMBER TO TAKE ASPIRIN, 81 MG, TWICE DAILY FOR 4 WEEKS UNLESS OTHERWISE DIRECTED. THIS IS YOUR BLOOD THINNER. * HIGH RISK PATIENTS MAY BE PRESCRIBED A STRONGER BLOOD THINNER. THIS WILL BE PROVIDED AT DISCHARGE. * CALL IF INCREASED PAIN, REDNESS, DRAINAGE OR FEVER GREATER THAT 101. * WEAR DANITA HOSE 20 HOURS PER DAY FOR 2 WEEKS. This is a large suction dressing covering your incision. This will help pull any excess drainage from the wound and allow your incision to heal properly. You may shower with this if you can keep the unit outside of the shower. If any bleeding or leakage is noted please call your doctor's office. This will remain on your incision for 7 days and then should be removed. This can be done yourself or by the home nursing staff if applicable. The entire unit is disposable once removed. Once removed, keep incision clean and dry. If redness or drainage is noted, please call your surgeon. IF INCISION IS LEAKING THROUGH DRESSING, CALL THE OFFICE . FOLLOW UP VISIT: If appointment is not already scheduled: Please call [facility] [place] to make a follow-up appointment for 2 weeks after your surgery at . Stand-Alone Forms: My [facility] [employer], Smoking Cessation Medications and DC Order Prescriptions: New acetaminophen [Tylenol Extra Strength] 500 mg Tablet 1,000 mg PO Q8 Qty: 60 0RF aspirin 81 mg Tablet,Delayed Release (Dr/Ec) 81 mg PO BID Qty: 60 0RF celecoxib [Celebrex] 200 mg Capsule 200 mg PO BID Qty: 60 0RF oxycodone 5 mg Tablet 5 - 10 mg PO .Q4h-6h MDD 6 PRN (Reason: pain) Qty: 30 0RF Rx Instructions: Ongoing therapy, Dr. Vilchis supervising Continued sumatriptan succinate 100 mg Tablet 50 mg PO DAILY PRN (Reason: Migraine Headache) coenzyme Q10 [CoQ-10] 100 mg Capsule 100 mg PO QAM Cholest Off 450 mg Tablet 900 mg PO QAM red yeast rice 600 mg Tablet 1,200 mg PO QAM Rx Instructions: give with meal/snack Discontinued celecoxib [Celebrex] 200 mg Capsule 200 mg PO QAM aspirin 81 mg Capsule 81 mg PO QAM Discharge Orders: Discharge Order (Routine); Ordered 08/30/22 Ordered By: Anton Mccollum Admission Data Admit Date/Time: 08/28/22 09:47 Attending Provider: Jose Vilchis Admit Provider: Jose Vilchis Primary Care Provider: Erendira Biswas Other Providers: Roel Morales ; Ting Jorge ; Karlos Casper
== END 2022-08-30 10:39 | disposition home or self-care (01) ==
LOC: 3E 05:13 → ASU 05:13